=== PATIENT | male | born 1960 | race Caucasian/White ===

== ENCOUNTER 2023-06-14 10:57 | Emergency (ER) | payer BC, SELFPAY ==
[2023-06-14 10:59] VITALS: BP 139/69; PULSE 67; RESP 18; TEMP 36.7; O2SAT 99; BMI 31.6
--- NOTE | 2023-06-14 11:00 | ED.GENADULT ---
HPI - General Adult General Chief complaint: Eye Problems Stated complaint: piece of metal in eye Time Seen by Provider: 06/14/23 11:12 Source: patient Mode of arrival: ambulatory Limitations: no limitations History of Present Illness HPI narrative: 62 yo male with no known medical problems here with concern for metal in left eye. reports he was working with sheet metal yesterday when he felt something go into his eye. He did have protective lenses on but feels it went around. He flushed it out and it felt better. Woke up at 4am with eye irritation, pain and photophobia. Vision normal. Tetanus UTD Related Data Allergies Allergy/AdvReac Type Severity Reaction Status Date / Time No Known Allergies Allergy Unverified 07/28/20 14:42 [No Known Allergies*] Review of Systems Review of Systems: Yes all other systems are reviewed and are negative Constitutional: Constitutional: Reports no additional constitutional complaints, Denies body ache(s), Denies chills, Denies fever(s), Denies headache(s) and Denies weakness Eyes: Eyes: Reports no additional eye complaints, Denies change in vision, Denies eye discharge, Reports irritation, Reports eye pain and Reports photophobia ENT: Reports system reviewed and no additional complaints, except as documented, Denies dizziness, Denies headache(s), Denies nasal congestion, Denies nasal discharge and Denies neck pain Cardiovascular: Cardiovascular: Reports no additional cardiovascular complaints, Denies chest pain, Denies leg edema and Denies dyspnea Respiratory: Respiratory: Reports no additional respiratory complaints, Denies cough and Denies dyspnea Gastrointestinal: Gastrointestinal: Reports no additional gastrointestinal complaints, Denies abdominal pain, Denies diarrhea, Denies nausea and Denies vomiting Genitourinary: Genitourinary: Denies urinary incontinence Musculoskeletal: Musculoskeletal: Reports no additional musculoskeletal complaints, Denies back pain, Denies arthralgias, Denies joint swelling, Denies neck pain, Denies numbness and Denies tingling Integumentary/Breasts: Skin/Breast: Reports system reviewed and no additional complaints, except as docu and Denies rash Neurologic: Reports system reviewed and no additional complaints, except as documented, Denies dizziness, Denies headache(s), Denies numbness, Denies tingling and Denies weakness PMFSH Past Medical History Attestation statement: The following information was validated with the patient. Source: old records reviewed and nursing notes reviewed Social History Social History Advance Directives: No Advance Directives Information Provided: No Physical Exam ED Vital Signs: Vital Signs - 24 hr 06/14/23 10:59 Temperature 98.1 F Pulse Rate 67 Respiratory Rate 18 Blood Pressure 139/69 Pulse Oximetry 99 Oxygen Delivery Method Room Air BMI result Body Mass Index 31.6 Const General: cooperative, healthy appearing, comfortable and no acute distress Orientation/consciousness: patient oriented x3 Limitations: no limitations HENMT Head: Yes normal to inspection Ears: hearing grossly normal bilaterally Eyes General: appearance normal, both eyes and all related structures Visual Hameed: normal visual hameed by confrontation Alignment and Position: alignment normal Periorbital: periorbital findings normal Eyelids: Yes eyelids normal Conjunctivae: conjunctival abnormal (left conjunctival injection ) Sclerae: scleral abnormal (left scleral edema and uptake of fluorescein ) Corneas: corneas abnormal on the left foreign body (at the 5 o clock position ) metallic and fluorescein used Pupils: Equal, round and reactive pupils present EOM: EOMs intact bilaterally Direct Ophthalmoscopy: photophobia Neck Neck: Yes normal visual inspection Chest Chest palpation & inspection: normal inspection of the chest Resp Effort & Inspection: normal respiratory effort Auscultation: clear to auscultation bilaterally Cardio Rate: regular rate Rhythm: regular rhythm Peripheral pulses: Peripheral pulses 2+ throughout GI Inspection: Yes normal to inspection Back/Spine/Pelvis Thoracic/Lumbar Spine: thoracic and lumbar spine normal to inspection Skin General skin exam: no rashes or lesions noted Neuro General: patient oriented x3 and moves all extremities Cranial nerves: Yes Equal, round and reactive pupils present Cognition (Neuro): normal cognition Gait exam (Neuro): Normal gait present Extrem General: Yes normal to inspection Course Course Course Narrative: This is a rapid medical exam: Additional HPI, ROS, PE not included below will be deferred to primary provider. Patient is a 62-year-old male presenting to the emergency department with complaint of ? foreign body to left eye. States he was cutting sheet metal yesterday and felt as though he got a piece of metal in his eye and thought he removed it but is still having foreign body sensation today. Unsure of last tetanus. Reports blurred vision and pain to left eye. Plan: visual acuity Reevaluation(s) Reevaluation #1: 1211- See procedure note. Unable to completely removed the foreign body from the left cornea. ?small rust ring. Will need ophthalmology consultation. Visual acuity bilaterally 20/50. Reevaluation #2: 1220-Spoke to Dr Fuentes office. Patient sent direct there. Procedures FB Removal Eye Location: eye (L) Topical anesthetic used: tetracaine Foreign body: metal Technique: cotton tip swab and needle Procedure performed under: slit-lamp Post-procedure medication: topical anesthetic Patient tolerated procedure: well Complications: incomplete foreign body removal Medical Decision Making Medical Decision Making MDM Narrative: 62 yo male here with complaints of left eye irritation, photophobia, and pain with concern for metal FB Will need eye exam, visual acuity Differential Diagnosis Differential Diagnoses: The differential diagnosis associated with the presentation includes corneal abrasion, corneal FB Consult Healthcare Provider Management of the patient was discussed with: [employer] Incomplete left cornea foreign body removal. Spoke to Dr. Fuentes office who will see the patient in the office today. please send direct to office from er Discharge Plan Discharge Clinical Impression: Corneal FB (foreign body) Patient Disposition: Home, Self-Care Instructions: Eye Foreign Body (ED) Additional Instructions: Go to [address] and check in at the bowling or skating front desk clerk We were not able to remove the entire FB Referrals: Tapan Hodge [Physician] - 2 days Interventions: ED Discharge Assessment Last Done: 06/14/23 12:27 Discharge Date/Time: 06/14/23 12:28
--- NOTE | 2023-06-14 12:27 | PC.NURSE ---
pt d/c'd by rajeev blank when in room. aox4. ambulatory.
== END 2023-06-14 12:28 | disposition home or self-care (01) ==
PROVIDERS: Emergency Provider Emergency Medicine; PCP Family Medicine
DX: T15.02XA Foreign body in cornea, left eye, initial encounter (principal)
CPT/HCPCS: 65222; 99283; 99284